=== PATIENT | male | born 1950 | race Caucasian/White ===

== ENCOUNTER → 2023-09-19 07:54 | Outpatient (REF) | payer MEDICARE, OTHER, SELFPAY | LOC: RSP 07:54 | PROVIDERS: ATTENDING PHYSICIAN Internal Medicine Cardiovascular Disease; FAMILY PHYSICIAN Family Medicine | DX: I48.91 Unspecified atrial fibrillation (principal); I49.3 Ventricular premature depolarization; Z51.81 Encounter for therapeutic drug level monitoring; Z79.899 Other long term (current) drug therapy | CPT/HCPCS: 94727; 94729; 88738; 94060 ==

== ENCOUNTER → 2024-02-14 07:03 | Outpatient (REF) | payer MEDICARE, OTHER, SELFPAY | LOC: RCS 07:03 | PROVIDERS: ATTENDING PHYSICIAN Internal Medicine Cardiovascular Disease; FAMILY PHYSICIAN Family Medicine; REFERRING PHYSICIAN Internal Medicine Advanced Heart Failure and Transplant Cardiology | DX: I48.91 Unspecified atrial fibrillation (principal); I49.3 Ventricular premature depolarization | CPT/HCPCS: 93306 ==

== ENCOUNTER 2024-04-28 20:12 | Emergency (ER) | payer MEDICARE, OTHER, SELFPAY ==
[2024-04-28 20:12] VITALS: BMI 23.5
[2024-04-28 20:17] VITALS: BP 131/75
[2024-04-28 20:29] LABS: % Basophils 0.5 % (0-2); % Eosinophils 1.4 % (0-6); % Immature Granulocytes 0.2 % (0-0.5); % Lymphocytes 33.2 % (20.5-51.1); % Monocytes 12.7 % (1.7-9.3); Absolute Eosinophils 0.1 10^3/uL (0-0.7); Absolute Lymphocytes 2.2 10^3/uL (1.2-3.4); Absolute Monocytes 0.8 10^3/uL (0.1-0.6); Absolute Neutrophils 3.4 10^3/uL (1.4-6.5); Hematocrit 38.6 % (39.0-52.0); Hemoglobin 13.8 g/dL (13.0-18.0); Mean Corp Hgb Conc. 35.8 g/dL (33.0-37.0); Mean Corpuscular Hgb 32.8 pg (27.0-31.0); Mean Corpuscular Volume 91.7 fL (80.0-94.0); Mean Platelet Volume 9.1 fL (7.4-10.4); Nucleated Red Blood Cells % 0 % (-); Platelet Count 166 10^3/uL (130-400); Red Blood Cell Count 4.21 10^6/uL (4.70-6.10); Red Cell Dist. Width 12.3 % (11.5-14.5); White Blood Cell Count 6.6 10^3/uL (4.8-10.8)
[2024-04-28 20:53] LABS: ALT (SGPT) 31 U/L (0-50); AST (SGOT) 34 U/L (17-59); Albumin 4.5 g/dl (3.5-5.0); Alkaline Phosphatase 31 U/L (38-126); Blood Urea Nitrogen 21 mg/dl (9-20); Calcium 9.8 mg/dl (8.4-10.2); Carbon Dioxide 30 mmol/L (22-30); Chloride 100 mmol/L (98-107); Glucose 98 mg/dl (70-99); Lipase 67 U/L (23-300); Potassium 4.4 mmol/L (3.5-5.1); Sodium 137 mmol/L (135-145); Total Bilirubin 0.7 mg/dl (0.2-1.3); Total Protein 6.9 g/dl (6.3-8.2); eGFR > 60.00
[2024-04-28 22:23] VITALS: BP 160/100
--- NOTE | 2024-04-28 22:57 | ED.GENMED ---
History of Present Illness
General
Chief Complaint: Abdominal Pain
Source: patient
Exam Limitations: none
Time Seen by Provider: 04/28/24 22:13
History of Present Illness
History of Present Illness:
This is a 74 year old male that comes in with c/o abd pain. States that 2 nights ago he started with this pain under his ribs on both sided. States that last night he had the pain again but it seemed a little lower. Then today he felt ok when he got
up so he went out for lunch. When he came home he started with pain on the left side. States that at 6pm it continued to get worse and by 7:30 he said to his lets go. Denies any fever, chills, chest pain, SOB, nausea, vomiting, diarrhea,
headache, dizziness, urinary burning.
Past History
Past History
ED Past Medical History: Arrthythmia (atrial fib) and CHF
ED Past Surgical History: Cardiac (Pacer/Def) and Other (Hernia repair)
Social History
Tobacco: Non-smoker
Alcohol: Occasional
Drug: None
Personal:
Living: with family
Employment: Retired
Family History
Family History: Other (Noncontributory)
Review of Systems
Review of Systems
All Other Systems: ROS reviewed and negative except as documented in HPI and ROS
Constitutional: Reports no symptoms; Denies fever or chills
EENT: Reports no symptoms
Respiratory: Denies cough or trouble breathing
Cardiac: Reports no symptoms; Denies chest pain
ABD/GI: Reports abdominal pain; Denies nausea, vomiting or diarrhea
: Reports no symptoms
Musculoskeletal: Reports no symptoms
Skin: Reports no symptoms
Neurological: Reports no symptoms; Denies dizzy or headache
Psychiatric: Reports no symptoms
Phy Exam
General Physical Exam
General Presentation: well appearing and no apparent distress
General age: appears stated age
General Skin: warm and dry
General Habitus: elderly
General Mental: alert
General Hydration: appears well hydrated
ENT Exam
ENT Exam: TM's normal, pharynx normal and neck supple
Eye Exam
Eye Exam: EOMI
Cardiovascular Exam
Cardiovascular Exam: regular rate/rhythm, no edema and normal peripheral pulses
Pulmonary Exam
Pulmonary Exam: lungs clear, no respiratory distress, no rales, chest non tender, no crackles, no rhonchi, no wheezing and no cough
Gastrointestinal Exam
Gastrointestinal Exam: normal bowel sounds, soft, no organomegaly, no pulsatile mass, non distended and tender (Slight left lower abd tenderness with palpation)
Musculoskeletal Exam
Musculoskeletal Exam: full ROM and no edema
Skin Exam
Skin Exam: normal color, warm/dry, no rash and no petechia
Psychiatric Exam
Psychiatric Exam: normal mood/affect
Course
Orders/Labs/Results
Orders:
Orders
04/28/24 20:24
Complete Blood Count/With Diff Urgent
Comprehensive Metabolic Panel Urgent
Lipase Urgent
04/28/24 22:31
EKG [Electrocardiogram (*1)] Urgent
Reason for Study: Abdominal Pain
EKG- Treatment ONCE
04/28/24 22:56
CT Abd/pelvis W Iv Cont Urgent
Comment:
Reason For Exam: LLQ tenderness
0.9% Sodium Chloride 1000 ml [Nss] 1,000 ml IV BOLUS
Ketorolac [Toradol] 15 mg IV NOW STA
Pantoprazole [Protonix IV] 40 mg IV NOW STA
04/28/24 22:59
Urinalysis Reflex To Culture Urgent
Date Specimen was Collected: 04/28/24
Time Specimen was Collected: 23:56
04/28/24 23:01
0.9% Sodium Chloride 500 ml [Nss] 500 ml IV BOLUS
Abnormal Lab Results
04/28/24
20:24
RBC 4.21 L 10^6/uL
(4.70-6.10)
Hct 38.6 L %
(39.0-52.0)
MCH 32.8 H pg
(27.0-31.0)
Absolute Monos (auto) 0.8 H 10^3/uL
(0.1-0.6)
Monocytes % 12.7 H %
(1.7-9.3)
BUN 21 H mg/dl
(9-20)
Alkaline Phosphatase 31 L U/L
(38-126)
04/28/24 20:24
04/28/24 20:24
Dehydration. Alk phos slightly low. Lipase normal at 67, Urine negative for infection.
Vital Signs
Initial and Last Documented VS:
Initial Vital Signs
Temp Pulse Resp BP Pulse Ox
97.7 F 54 18 131/75 99
04/28/24 20:17 04/28/24 20:17 04/28/24 20:17 04/28/24 20:17 04/28/24 20:17
Last Documented Vital Signs
Temp Pulse Resp BP Pulse Ox
97.7 F 65 16 160/100 98
04/28/24 20:17 04/28/24 22:30 04/28/24 22:30 04/28/24 22:23 04/28/24 22:30
MDM/Problems Addressed
Differential Diagnosis Includes:
diverticulitis,
MDM/Problems Addressed:
This is a 74 year old male that comes in with c/o left lower abd pain. State that he had pain 2 nights ago under his ribs on both sided. Then the next night it seemed to move a little lower and now it is lower yet.
will check labs and get CT scan.
Back into see patient. States that he does have that left lower abd pain. Explained that his CT is normal. Will check urine and if normal feel that patient can go home.
Chronic conditions affecting care:
NA
Acute Exacerbation and/or Progression of Chronic Illness:
NA
*Radiology
Radiology exam reviewed: radiology read reviewed (CT night hawk- Cardiomegaly. NO acute finding in the abdomen or pelvis. )
*Pulse Oximetry
Patient hypoxic: no
*EKG
Interpreted by ED Provider?: Yes
Heart Rate: 65
Rate: normal
Rhythm: PVC's and ventricular paced
*Piercer Interpretation
Rate: normal
Heart Rate: 62
Rhythm: ventricular paced
*Critical Care Note
Total Time (30-74mins, 75-104mins- exclusive of procedures): Not Applicable
ED Attending Note
-
Portions of this chart may have been created with voice recognition software.� Occasional wrong word or��sound alike� substitutions may have occurred due to the inherent limitations of voice recognition software.
Discharge Plan
Departure
Patient Disposition: Home (Routine Discharge)
Date of Disposition: 04/29/24
Time of Disposition: 00:56
Patient with high blood pressure during this ER visit?: Yes
Condition: Good
Covid-19: Not Applicable
Discharge Problem:
Abdominal pain
Instructions: Abdominal Pain, BLOOD PRESSURE
Prescriptions:
No Action
carvedilol [Coreg] 25 MG tablet
25 mg PO BID
lisinopril 10 MG tablet
10 mg PO DAILY
docosahexaenoic acid-epa 1 CAP capsule
1 cap PO DAILY
cholecalciferol (vitamin D3) 1,000 UNITS tablet
1,000 units PO DAILY
apixaban [Eliquis] 5 MG tablet
5 mg PO BID
Referrals:
Rosaura Briggs DO [Family Provider] - Follow up in 2-3 days
Activity Restrictions/Additional Instructions:
As discussed, your blood work shows slight Dehydration. Please increase your water intake to 8-8oz glasses daily. Your CT is negative for any acute process. Please follow up with the family doctor for recheck. IF YOU HAVE INCREASED OR CHANGING PAIN,
OR YOU HAVE ANY OTHER CONCERNS PLEASE RETURN TO THE EMERGENCY ROOM.
Interventions
Interventions:
*Risk Screen - Suicide Last Done: 04/28/24 20:20
*General Assessment Last Done: 04/28/24 22:30
*Neglect/Abuse Screening Last Done: 04/28/24 20:20
*ED COVID-19 Vaccine History Last Done: 04/28/24 20:20
ZR-Oiduni-Vzlahdkfyg Assessment Last Done: 04/28/24 22:16
Discharge Date and Time
Print Language: MONEGASQUE
[2024-04-28] MEDS: PROTONIX IV 40 MG IV (23:29)
[2024-04-28] MEDS: NSS 500 IV (23:29)
[2024-04-28] MEDS: TORADOL 15 MG IV (23:29)
[2024-04-29] VITALS: BP 89/59
[2024-04-29 00:03] VITALS: BP 166/80
[2024-04-29 00:20] LABS: Urine Albumin Negative (Neg - Trace); Urine Bilirubin Negative (Negative); Urine Character Clear (Clear); Urine Color Yellow; Urine Glucose Negative (Negative); Urine Ketone Negative (Negative); Urine Leukocyte Negative (Negative); Urine Nitrite Negative (Negative); Urine Occult Blood Negative (Negative); Urine Urobilinogen Negative (Neg - 1+); Urine pH 6.5 (5.0-9.0)
[2024-04-29 01:00] VITALS: BP 139/61
== END 2024-04-29 01:35 | disposition home or self-care (01) ==
LOC: EMR 20:12
PROVIDERS: Clinical Nurse Specialist Family Health; Emergency Medicine; EMERGENCY PHYSICIAN Student in an Organized Health Care Education/Training Program; FAMILY PHYSICIAN Family Medicine
DX: R10.9 Unspecified abdominal pain (principal); R03.0 Elevated blood-pressure reading, without diagnosis of hypertension
CPT/HCPCS: 99285; 96374; 96375; 96361; 74177; 80053; 81003; 83690; 85025; 93005; Q9967

== ENCOUNTER → 2024-12-29 08:09 | Outpatient (REF) | payer MEDICARE, OTHER, SELFPAY | LOC: RCS 08:09 | PROVIDERS: ATTENDING PHYSICIAN Nurse Practitioner; FAMILY PHYSICIAN Family Medicine | DX: I49.3 Ventricular premature depolarization (principal) | CPT/HCPCS: 93306 ==

== ENCOUNTER 2025-02-07 06:10 | Emergency (ER) | payer MEDICARE, OTHER, SELFPAY ==
[2025-02-07 06:12] VITALS: BP 164/98
--- NOTE | 2025-02-07 06:33 | ED.GENMED ---
History of Present Illness
General
Chief Complaint: Head Injury
Source: patient and spouse
Exam Limitations: none
Time Seen by Provider: 02/07/25 06:25
Nursing documentation reviewed up to this point in time: agreed with except (Patient is on clindamycin)
History of Present Illness
History of Present Illness:
75-year-old male with a past medical history of as noted significant for A-fib on Eliquis presents to the ER for evaluation of headache. Patient reports that he has had constant mild left parietal headache for the past week or so. He reports that
the headache started shortly after he accidentally walked into the garage door and struck the top of his head. He says he did not pass out at that time, stumbled backwards but did not fall or sustain any other injuries. He says he did not
initially tell anyone or seek care but has had consistent headache since and so he came to the ER to be evaluated. Aside from headache he denies any neck pain. Denies any nausea or vomiting. She denies any change in his vision or speech, focal
weakness or numbness. He denies any other acute issues such as rib pain, back pain, pain in the extremities. He is on Eliquis as above. He does note that he also recently started antibiotics after recent dental fillings�he says that he had some
dental work done on the right side and then subsequently developed some localized swelling and was seen by oral surgeon and had CT scan which showed enlarged lymph nodes and so he was started on clindamycin for mild infection. Swelling has improved
since antibiotics started.
Past History
Past History
ED Past Medical History: Arrthythmia (atrial fib) and CHF
ED Past Surgical History: Cardiac (Pacer/Def) and Other (Hernia repair)
Social History
Tobacco: Non-smoker
Alcohol: Occasional
Drug: None
Personal:
Living: with family
Employment: Retired
Family History
Family History: Other (Noncontributory)
Review of Systems
Review of Systems
All Other Systems: ROS reviewed and negative except as documented in HPI and ROS
Constitutional: Denies fever
Respiratory: Denies trouble breathing
Cardiac: Denies chest pain
ABD/GI: Denies abdominal pain, nausea or vomiting
: Denies flank pain
Musculoskeletal: Denies neck pain or back pain
Neurological: Reports headache; Denies dizzy, weakness or numbness
Phy Exam
Physical Exam
Physical Exam:
General: Awake, alert, oriented x3; no acute distress
Head: Normocephalic, atraumatic
Eyes: Conjunctiva normal, EOMI, pupils equal round reactive to light bilaterally
Throat: Airway intact, handling secretions
Neck: Trachea midline, supple without meningismus, no cervical spine tenderness, full range of motion without pain
Lungs: Breathing comfortably no distress
Heart: Regular rate; no chest wall tenderness
Abd: Soft, non distended, nontender
Neuro: Cranial nerves intact, speech fluid, motor and sensory intact proximally and distally in the upper and lower extremities
Extremities: Atraumatic, no edema in extremities, equal pulses in all extremities
Scores
Heart Failure Risk
Heart Failure Risk Score: Not Applicable
Heart Score for Chest Pain Patients
STEMI patient?: Not applicable
Withdrawal Assessment of Alcohol
Withdrawal Assessment Completed?: Not applicable
Course
Orders/Labs/Results
Orders:
Orders
02/07/25 06:25
CT Head W/o Iv Contrast Urgent
Comment:
Reason For Exam: headaches s/p head trauma
02/07/25 07:38
Acetaminophen 1000MG/100Ml [Ofirmev] 1,000 mg in 100 ml IV ONCE
Acetaminophen IV Indication:: ED Narcotic Naive Pt-ONCE
02/07/25 07:39
0.9% Sodium Chloride 1000 ml [Nss] 1,000 ml IV BOLUS
02/07/25 07:42
Complete Blood Count/With Diff Urgent
Comprehensive Metabolic Panel Urgent
ESR [Erythrocyte Sed Rate] Urgent
Abnormal Lab Results
02/07/25
07:42
RBC 4.17 L 10^6/uL
(4.70-6.10)
MCH 33.1 H pg
(27.0-31.0)
Absolute Monos (auto) 0.7 H 10^3/uL
(0.1-0.6)
Lymphocytes % 19.2 L %
(20.5-51.1)
Monocytes % 10.7 H %
(1.7-9.3)
Sodium 134 L mmol/L
(135-145)
Alkaline Phosphatase 31 L U/L
(38-126)
02/07/25 07:42
02/07/25 07:42
Vital Signs
Initial and Last Documented VS:
Initial Vital Signs
Temp Pulse Resp BP Pulse Ox
36.7 C 82 20 164/98 97
02/07/25 06:12 02/07/25 06:12 02/07/25 06:12 02/07/25 06:12 02/07/25 06:12
Last Documented Vital Signs
Temp Pulse Resp BP Pulse Ox
36.7 C 78 18 150/76 98
02/07/25 06:12 02/07/25 07:55 02/07/25 07:55 02/07/25 07:55 02/07/25 07:55
MDM/Problems Addressed
Differential Diagnosis Includes:
Brain bleed (subdural, subarachnoid, etc), brain mass, concussion, tension headache
MDM/Problems Addressed:
75-year-old male presents for evaluation of headache over the past week in the setting of recent dental infection�he is on clindamycin and symptoms have generally improved from that. He had a minor head trauma as well prior to onset and given this
fact and persistent symptoms decided to come to the emergency room. Vitals and exam as above. Could be concussion, low suspicion for emergent intracranial pathology (i.e. brain bleed) given only mild symptoms with normal neurologic assessment a
week after inciting trauma however given that he is on blood thinners we will check CT head. Monitor closely reassess as the above.
CT head negative for any acute pathology. Vital signs and exam stable on reassessment. He is still having consistent headache he describes 5/10 intensity. He says that has not been managed well with oral Tylenol at home. Given persistent
symptoms will place an IV and check labs, provide some fluids and IV Tylenol and reassess. Could be mild concussion, headache from dental issues, tension headache, etc.
Patient feeling better after fluids and IV Tylenol here, vital signs and exam stable. Stable for discharge. Spoke about return precautions all questions answered.
Chronic conditions affecting care:
A-fib on Eliquis
Acute Exacerbation and/or Progression of Chronic Illness:
Acutely hypertensive
Acute Exacerbation and/or Progression of Chronic Illness: HTN
*Radiology
Radiology exam reviewed: radiology read reviewed
*Pulse Oximetry
SaO2: 97
Oxygen Mode of Delivery: Room air
Patient hypoxic: no (97%)
*Critical Care Note
Total Time (30-74mins, 75-104mins- exclusive of procedures): Not Applicable
Data Reviewed
Source: patient, records and spouse
ED Attending Note
-
Portions of this chart may have been created with voice recognition software.� Occasional wrong word or��sound alike� substitutions may have occurred due to the inherent limitations of voice recognition software.
Discharge Plan
Departure
Patient Disposition: Home (Routine Discharge)
Date of Disposition: 02/07/25
Time of Disposition: 08:49
Patient with high blood pressure during this ER visit?: Yes
Discharge Problem:
Headache
Instructions: Minor Head Injury (DC)
Prescriptions:
No Action
carvedilol [Coreg] 25 MG tablet
25 mg PO BID
lisinopril 10 MG tablet
10 mg PO DAILY
docosahexaenoic acid-epa 1 CAP capsule
1 cap PO DAILY
cholecalciferol (vitamin D3) 1,000 UNITS tablet
1,000 units PO DAILY
apixaban [Eliquis] 5 MG tablet
5 mg PO BID
Referrals:
Karma Amaya DO [Family Provider] - Call in 1-3 days for appt
Activity Restrictions/Additional Instructions:
Thank you for visiting the Emergency Department at [facility].
1. Please schedule a follow up appointment as directed. Call first thing tomorrow morning to make an appointment.
2. If indicated, please take your medications as instructed and indicated on discharge paperwork.
3. If any of your symptoms do not improve, or persist, or become more severe within 6-12 hours, please return to the emergency department for further care.
4. Please return to the emergency department if you develop a headache, neck pain/stiffness, fever greater than 100.4F, chest pain, shortness of breath, persistent nausea, vomiting, slurred speech, difficulty walking, numbness/tingling, weakness,
signs of infection or any other symptoms that are worrisome to you.
Please call [phone] if you have any questions.
Interventions
Interventions:
*Risk Screen - Suicide Last Done: 02/07/25 06:12
*General Assessment Last Done: 02/07/25 06:29
*Neglect/Abuse Screening Last Done: 02/07/25 06:12
*ED- Fall Risk Assessment Last Done: 02/07/25 06:29
*ED COVID-19 Vaccine History Last Done: 02/07/25 06:29
ED- Neurological Assessment Last Done: 02/07/25 06:29
ED-Skin Assessment Last Done: 02/07/25 06:29
Discharge Date and Time
Print Language: IRAQI
[2025-02-07] MEDS: OFIRMEV 100 IV (07:42)
[2025-02-07] MEDS: NSS 1000 IV (07:44)
[2025-02-07 07:55] VITALS: BP 150/76
[2025-02-07 08:27] LABS: ALT (SGPT) 31 U/L (0-50); AST (SGOT) 27 U/L (17-59); Albumin 4.3 g/dl (3.5-5.0); Alkaline Phosphatase 31 U/L (38-126); Blood Urea Nitrogen 17 mg/dl (9-20); Calcium 9.5 mg/dl (8.4-10.2); Carbon Dioxide 27 mmol/L (22-30); Chloride 102 mmol/L (98-107); Glucose 97 mg/dl (70-99); Potassium 4.2 mmol/L (3.5-5.1); Sodium 134 mmol/L (135-145); Total Protein 6.8 g/dl (6.3-8.2); eGFR > 60.00
[2025-02-07 08:33] LABS: Hematocrit 39.0 % (39.0-52.0); Hemoglobin 13.8 g/dL (13.0-18.0); Mean Corp Hgb Conc. 35.4 g/dL (33.0-37.0); Mean Corpuscular Volume 93.5 fL (80.0-94.0); Nucleated Red Blood Cells % 0 % (-); Platelet Count 154 10^3/uL (130-400); Red Cell Dist. Width 12.4 % (11.5-14.5)
[2025-02-07 09:46] VITALS: BP 145/78
== END 2025-02-07 09:47 | disposition home or self-care (01) ==
LOC: EMR 06:10
PROVIDERS: EMERGENCY PHYSICIAN Emergency Medicine; FAMILY PHYSICIAN Family Medicine
DX: R51.9 Headache, unspecified (principal); I48.91 Unspecified atrial fibrillation; I11.0 Hypertensive heart disease with heart failure; I50.9 Heart failure, unspecified; Z79.01 Long term (current) use of anticoagulants
CPT/HCPCS: 96374; 96361; 99284; 70450; 80053; 85025; 85652